=== PATIENT | male | born 1960 | race Caucasian/White ===

== ENCOUNTER 2017-05-01 09:53 | Emergency (ER) | payer SELFPAY ==
[~2017-05-01] VITALS: Ht 182.9 cm; Wt 73.9 kg
[2017-05-01 11:00] VITALS: BP 123/87
== END 2017-05-01 12:55 | disposition home or self-care (01) ==
LOC: EME 09:53
DX: S71.111A Laceration without foreign body, right thigh, initial encounter (principal); Z23 Encounter for immunization; W29.8XXA Contact with other powered hand tools and household machinery, initial encounter
CPT/HCPCS: 99281; 99284; J0690